=== PATIENT | female | born 1990 | race Caucasian/White ===

== ENCOUNTER 2022-07-28 13:32 | Outpatient (CLI) | payer OTHER, SELFPAY ==
[2022-07-28 13:52] LABS: Hematocrit 32.9 % (37.0-47.0); Hemoglobin 10.5 g/dL (12.0-15.0); Mean Corpuscular HGB Conc 31.9 g/dl (32-36); Mean Corpuscular Hemoglobin 27.3 pg (26-34); Mean Corpuscular Volume 85.5 fl (80-100); Mean Platelet Volume 10.6 fl (7.4-10.4); Platelet Count Result 284 k/mm3 (150-375); Red Blood Count 3.85 M/mm3 (4.2-5.4); Red Cell Distribution Width 14.6 % (11.5-14.5); White Blood Count 12.4 K/mm3 (4.5-10.0)
[2022-07-29 13:54] LABS: Rapid Plasma Reagin Non-Reactive (NonReactive)
== END 2022-07-28 13:33 | disposition home or self-care (01) ==
LOC: ANHLAB 13:34
PROVIDERS: Visit Provider Obstetrics & Gynecology
DX: Z01.812 Encounter for preprocedural laboratory examination (principal)
CPT/HCPCS: 36415; 85027; 86592; 86850; 86900; 86901

== ENCOUNTER 2022-07-29 09:00 | Inpatient (IN) | payer OTHER, SELFPAY ==
[2022-07-29] VITALS (83 sets, daily range): BP systolic 119–148; BP diastolic 66–122; PULSE 62–116; RESP 12–18; TEMP 36–37.1; O2SAT 95–100; BMI 38.7
--- NOTE | 2022-07-29 09:26 | P.HP_ITS ---
H&P: HPI History of Present Illness Date/Time: 07/29/22 09:26 Chief Complaint: R CS Narrative: Gretta is a 32yo at 39.0 who presents for repeat CS with bilateral salpingectomy. is complicated by 3 prior CS and late/insufficient care, only 3 visits. Her UDS at first visit was pos for MJ and amphetamines, she admitted to using meth until 32w GA. She also has a history of a previous child with a heart defect but was noncompliant in scheduling a echo this . Plan for repeat CS and sterilization with salpingectomy. Review of Systems Review of Systems: All systems reviewed & are unremarkable except as noted in HPI and below [facility] Family History Family History (Updated 07/25/22 @ 13:34 by Danuta Donaldson RN) Other Patient denies significant medical history Social History Social History Substance use: never Last use: unknown, pt denies Spiritual care concerns: No Meds Home Medications and Allergies Home Medications Medication Instructions Recorded Confirmed Type albuterol sulfate 90 mcg/actuation 2 puff inhalation QID PRN Wheezing 07/25/22 07/25/22 History aerosol inhaler prenat.vits,naila,[id number]-tdhvs 1 tablet PO DAILY 07/25/22 07/25/22 History Allergies Allergy/AdvReac Type Severity Reaction Status Date / Time No Known Allergies Verified 01/17/10 09:13 Exam Const: General: no acute distress Resp: Effort & Inspection: normal respiratory effort Auscultation: clear to auscultation bilaterally Cardio: Rate: regular rate Rhythm: regular rhythm GI: GI Palp: Yes Soft to palpation Extrem: General: normal to inspection Assessment and Plan Assessment and plan (1) History of delivery: Code(s): Z98.891 - History of uterine scar from previous surgery Status: Acute (2) Encounter for sterilization: Code(s): Z30.2 - Encounter for sterilization Status: Acute (3) Insufficient care: Code(s): O09.30 - Supervision of with insufficient care, unspecified trimester Status: Acute (4) Drug abuse during : Code(s): O99.320 - Drug use complicating , unspecified trimester; F19.10 - Other psychoactive substance abuse, uncomplicated Status: Acute Plan Consented for R CS and bilateral salpingectomy, discussed RBA, questions answered, will proceed SW consult drug screen on maternal urine and cord
[2022-07-29] MEDS: LACTATED RINGERS 1,000 ML 125 ML IV CONT ×2 (09:52→11:59)
--- NOTE | 2022-07-29 09:55 | LDADM ---
This patient, Gretta Norman, was admitted to Labor/Delivery/Recovery 120 on 07/29/22 at 09:00. Plans for labor, pain management and were discussed with patient. Patient/family oriented to hospital policies and general routines including ID bracelet, bed and alarms, visiting hours, pain management, procedures, bathroom and other care routines, personal items, smoking policy, room service/diet and guest tray routines, security routines, and visiting hours. Patient/Family are encouraged to report perceived risks to care and to ask questions if they do not understand what they are told or what they should do.
--- NOTE | 2022-07-29 11:57 | WPDANESEPPF ---
Anes - Initial Pre Proc Eval Procedure: Operation Date: 07/29/22 12:00 Proposed Procedures p Repeat Section with Bilateral Salpingectomy - Deanna Patten MD Date/Time: 07/29/22 11:57 Surgeon: Deanna Patten MD Pre Op Diagnosis: c/s Patient Data Age: 32 Gender: F Height: 1.63 m Weight: 102.2 kg Last Vital Signs Temp 36.7 C 07/29/22 09:30 Pulse 78 07/29/22 11:01 Resp 18 07/29/22 09:30 BP 147/82 H 07/29/22 11:01 Pulse Ox 96 07/29/22 10:19 O2 Del Method Room Air 07/29/22 09:55 Allergies Allergy/AdvReac Type Severity Reaction Status Date / Time No Known Allergies Verified 01/17/10 09:13 Home Medications Medication Instructions Recorded Confirmed Type albuterol sulfate 90 mcg/actuation 2 puff inhalation QID PRN Wheezing 07/25/22 07/29/22 History aerosol inhaler prenat.vits,naila,qnr-fpcu-ynymy 1 tablet PO DAILY 07/25/22 07/29/22 History Laboratory Tests 07/29/22 10:40 Urine Opiates Screen Pending Urine Methadone Screen Pending Ur Barbiturates Screen Pending Ur Phencyclidine Scrn Pending Ur Amphetamine Screen Pending U Benzodiazepines Scrn Pending Urine Cocaine Screen Pending U Cannabinoids Screen Pending Patient hx anesthesia problems: none Family hx anesthesia problems: none Results Review: All pre-operative results and documents have been reviewed as part of the pre-operative evaluation. [facility] Past Medical History Medical History (Updated 07/29/22 @ 11:57 by Esteban Gregorio DO) Asthma Family History Family History Other Patient denies significant medical history Social History Social History Smoking packs per day: 1 Smoking cigarettes per day: 20.0 Years smoked: 13 Smoking pack-years: 13.00 Smoking status: Current every day smoker Second hand tobacco smoke exposure: Yes Additional smoking assessment comments: Had totally stopped, but has had 2 cigs/day for the last 2 weeks Substance use: never Last use: unknown, pt denies Lack of Transportation: YES Lack of Food: Never True Current Housing: I Have Housing Concerned About Future Housing: No Difficulty Paying Gas/Electric Bills: No Difficulty Paying for Meds: No Currently Unemployed: No Education: Grade School Difficulty w/ Childcare or Family Care: No Spiritual care concerns: No Anes - Eval Final PreProcedure Day of Procedure 07/29/22 11:57 Patient weight: obese Heart: regular rate and rhythm Lungs: clear to auscultation and normal air movement Airway: Mallampati scale class II Neurological: alert and oriented Last oral intake: >/= 8 hours ASA classification: III Emergent: no Anesthetic plan: proceed Anesthesia type and monitoring: regional spinal and standard monitoring Results Review: All pre-operative results and documents have been reviewed as part of the pre-operative evaluation. Informed Consent: The patient's anesthetic plan and its attendant risks and benefits were discussed with the patient/family/POA. Questions were solicited and answers provided to the satisfaction of the patient/family/POA.
[2022-07-29 12:06] LABS: Amphetamine Screen Urine Negative (Negative); Barbiturate Screen Urine Negative (Negative); Benzodiazepines Screen Urine Negative (Negative); Cannabinoid Screen Urine Negative (Negative); Cocaine Screen Urine Negative (Negative); Methadone Screen Urine Negative (Negative); Opiate Screen Urine Negative (Negative); Phencyclidine Screen Urine Negative (Negative)
--- NOTE | 2022-07-29 12:08 | WPDHPUPDATE1 ---
History and Physical Update Update Date/Time: 07/29/22 12:08 History and Physical has been reviewed, including an updated exam of the patient. There are NO changes in the patient's condition. Risks, benefits, and alternatives have been discussed and questions answered. Patient agrees to proceed with procedure.
[2022-07-29] MEDS: ceFAZolin 2 GM/D5W 50 ML 2 GM/50 ML BAG IVPB (12:10)
[2022-07-29] MEDS: KETOROLAC 30 MG/ML VIAL (*BKC) IV PUSH (13:14)
--- NOTE | 2022-07-29 13:28 | PM.OBPRVD ---
OB - Delivery Note Procedure Delivery date: 07/29/22 Procedure: Procedures Operation Date: 07/29/22 12:00 Actual Procedure Side Surgeon p Repeat Section with Bilateral Salpingectomy Bilateral Deanna Patten MD Events: No Care (minimal) and Other Route of delivery: Specimen: Yes (placenta) Quantitative Blood Loss (ml): 400 Anesthesia type: Spinal Disposition: Floor Complications: none Narrative: The patient was taken to the OR and received spinal anesthesia. She was placed in dorsal supine position with left lateral tilt. SCDs and amaro were placed. She was prepped and draped in the normal sterile fashion. A Pfannensteil skin incision was made and carried through to the underlying layer of fascia. The fascia was incised in the midline and then extended laterally using Hickey scissors. The muscles were in the midline and the peritoneum was entered bluntly. There was a large amount of omentum adherent to the anterior abdominal wall which was taken down with sharp dissection and clamping and cutting thicker areas of it to expose the uterus. The bladder blade was then inserted, the vesicouterine peritoneum was grasped, incised with Metzenbaum scissors, and a bladder flap created. The bladder blade was reinserted. A low transverse uterine incision was made with a scalpel and extended bluntly. AROM was performed and fluid was noted to be clear. The baby was found to be breech and was delivered as such, in typical fashion, without any difficulty. The baby's oropharynx was suctioned. After 30 seconds, the cord was clamped and cut and the infant was handed off. Cord blood was obtained and the placenta was then removed manually. The uterus was exteriorized. A moist lap sponge was used to curette the endometrium. The uterine incision was then closed with one layer of 0-Vicryl in a running, locking fashion. Good hemostasis was noted. I then turned attention to the tubes. Using the Ligasure, the right tube was removed by sequentially clamping, cauterizing, and cutting the tube free from the cornua and the broad ligament. Similarly, the left tube was removed. The posterior cul de sac was irrigated with normal saline and cleared of all clot and debris. The uterus was returned to the abdomen. Both lateral gutters were then irrigated. The rectus muscles were inspected and found to be hemostatic. The fascia was reapproximated using 0-Vicryl in running fashion. The subcutaneous tissue was irrigated with normal saline and made hemostatic with Bovie electrocautery. The skin was then closed with reabsorbable keyshawn. Steri strips and a bandage were applied. The uterus was evacuated. The patient tolerated the procedure very well. All counts were correct. She was taken to the recovery room in good condition. [place] Baby Date of : 07/29/22 Time of : 12:45 Weeks of gestation at delivery: 39 gender: Female Weight (pounds): 7 Weight (ounces): 10 presentation: breech Placenta delivery description: Manual Removal and Abnormal Configuration (velamentous cord insertion) Cord Vessel Description: 3 Vessels and Clamped/Cut score one minute: 7 score five minutes: 9
--- NOTE | 2022-07-29 13:33 | SUR.PHASEI ---
300 ml remains in IV of 1000 LR with 40 units Pitocin.
[2022-07-29] MEDS: OXYTOCIN 30 UNITS/NS 500 ML 30 UNITS/500 ML BAG 125 UNITS IV CONT (14:52)
--- NOTE | 2022-07-29 16:10 | OBPPTRN ---
Patient transferred to post room # 286 via stretcher. and support person present. Pt introductions made and plan of care dsicussed per post op c section, pain management, bottle feeding, daily care activities. PT received such instructions per one to one discussion , mom baby care guide and demonstrations this shift. PT and fob both recipients of such care . Fob has a hearing loss and wears hearing aides. PT Oriented to unit, room, information board, rooming in, admission packet and security measures. Patient verbalizes understanding.
[2022-07-29] MEDS: POLYSACCHARIDE IRON COMPLEX 150 MG CAPSULE PO (16:56)
[2022-07-29] MEDS: SIMETHICONE 80 MG TAB.CHEW PO (16:56)
[2022-07-29] MEDS: DOCUSATE SODIUM 100 MG CAPSULE PO (16:56)
[2022-07-29] MEDS: diphenhydrAMINE HCl INJ 50 MG/ML VIAL 25 MG IV PUSH (16:57)
[2022-07-29] MEDS: DEXTROSE 5%/0.45% SOD CHL 1,000 ML 125 ML IV CONT (19:11)
[2022-07-30 03:30] VITALS: BP 126/85; PULSE 67; RESP 18; TEMP 36.9; O2SAT 98
[2022-07-30 03:55] LABS: Basophils Percent Auto 0.2 % (0.2-1.2); Eosinophils Percent Auto 0.2 % (0-4.4); Hematocrit 32.4 % (37.0-47.0); Hemoglobin 10.3 g/dL (12.0-15.0); Immature Granulocyte Absolute 0.08 K/mm3 (0.00-0.031); Immature Granulocyte Percent A 0.5 % (0-0.5); Lymphocytes Percent Auto 19.6 % (18.3-44.2); Mean Corpuscular HGB Conc 31.8 g/dl (32-36); Mean Corpuscular Hemoglobin 27.2 pg (26-34); Mean Corpuscular Volume 85.7 fl (80-100); Monocytes Absolute Auto 0.9 K/mm3 (0.1-0.6); Monocytes Percent Auto 5.9 % (2.6-8.5); Neutrophils Absolute Auto 11.6 K/mm3 (1.3-6.7); Neutrophils Percent Auto 73.6 % (45.5-73.1); Platelet Count Result 252 k/mm3 (150-375); Red Blood Count 3.78 M/mm3 (4.2-5.4); Red Cell Distribution Width 14.9 % (11.5-14.5); White Blood Count 15.8 K/mm3 (4.5-10.0)
--- NOTE | 2022-07-30 07:52 | WPDANLDPN2 ---
Anes-Prog Note L&D Date/Time: 07/30/22 07:52 Comfortable throughout: section Neuraxial method: spinal Epidural/Spinal procedure site: clean & non-tender Neuro status: Neuro function grossly intact. Cardiovascular status: normal Respiratory status: normal Airway patency: baseline Mental status: baseline Post-Op hydration status: normal Vital Signs: Last Vital Signs Temp 36.9 C 07/30/22 03:30 Pulse 67 07/30/22 03:30 Resp 18 07/30/22 03:30 BP 126/85 07/30/22 03:30 Pulse Ox 98 07/30/22 03:30 O2 Del Method Room Air 07/30/22 03:30 Pain score (VAS): 3/10 I/O: Intake & Output 07/29/22 07/29/22 07/30/22 15:59 23:59 07:59 Intake Total 1350 840 200 Output Total 384 594 7937 Balance 850 540 -1200 Post-procedural complaints: none Patient feedback: Patient satisfied with anesthetic care.
--- NOTE | 2022-07-30 07:53 | WPDANLDNPN2 ---
Anes-Prog Note L&D-Neuraxial Date/Time: 07/30/22 07:53 Neuraxial medications: intrathecal PF morphine Opiod-related complaints: pruritis moderate, treatment effective Patient feedback: Patient satisfied with post-operative pain management.
--- NOTE | 2022-07-30 07:58 | PM.OBPNVD ---
OB - PN: Subj Subjective Date/time seen: 07/30/22 07:58 Patient comments: no complaints, pain well controlled, tolerating diet and flatus present Kinzers baby status: doing well OB - PN: Obj Data Labs 07/30/22 03:26 Labs: Laboratory Results - last 24 hr 07/29/22 07/30/22 10:40 03:26 WBC 15.8 H RBC 3.78 L Hgb 10.3 L Hct 32.4 L MCV 85.7 MCH 27.2 MCHC 31.8 L RDW 14.9 H Plt Count 252 MPV 11.0 H Immature Gran % (Auto) 0.5 Neut % (Auto) 73.6 H Lymph % (Auto) 19.6 [place] % (Auto) 5.9 Eos % (Auto) 0.2 Baso % (Auto) 0.2 Lymph # (Auto) 3.10 [place] # (Auto) 0.9 H Eos # (Auto) 0.0 Baso # (Auto) 0.0 Abs Immat Gran (auto) 0.08 H Absolute Neuts (auto) 11.6 H Absolute Nucleated RBC 0.0 Nucleated RBC % 0.0 Urine Opiates Screen Negative Urine Methadone Screen Negative Ur Barbiturates Screen Negative Ur Phencyclidine Scrn Negative Ur Amphetamine Screen Negative U Benzodiazepines Scrn Negative Urine Cocaine Screen Negative U Cannabinoids Screen Negative OB - PN A/P Plan day: 1 Plan: routine care Time Spent With Patient Time: Total time spent is greater than 50% in coordination of care (as documented) at patient's floor/unit and/or counseling patient: Time with patient: less than 15 minutes Review of Systems Review of Systems: All systems reviewed & are unremarkable except as noted in HPI and below Exam Narrative: Fundus firm. Vaginal flow controlled. Incision dry and intact. Negative homans. No redness, warmth, or pain of lower ext. Const: General: comfortable Chest: Breast/axilla inspection: normal inspection of the breasts Resp: Effort & Inspection: normal respiratory effort Auscultation: clear to auscultation bilaterally Cardio: Rate: regular rate GI: GI Palp: Yes Soft to palpation Psych: Appearance: grossly normal Affect: normal affect Attitude: cooperative Thought content: Yes Normal thought content present Judgement: Good judgement present (Psych)
--- NOTE | 2022-07-30 08:30 | PC.NURSE ---
Pt introductions made and plan of care discussed per post , post op c section, pain management, bottle feeding, daily care activities. PT sole recipient of such instructions and no barriers to learning at this time. PT received such instructions this shift per one to one discussion, mom baby care guide and demonstrations. PT verbalized understanding of such care.
[2022-07-30] MEDS: HYDROcodone/acetaminophen (*CRX) 5-325 MG TABLET 1 TAB PO ×3 (08:42→17:52)
[2022-07-30] MEDS: IBUPROFEN 600 MG TABLET PO ×3 (08:44→20:00)
[2022-07-30 08:45] VITALS: BP 152/94; PULSE 79; RESP 20; TEMP 37.2; O2SAT 98
[2022-07-30] MEDS: SIMETHICONE 80 MG TAB.CHEW PO ×2 (08:45→15:03)
[2022-07-30] MEDS: DOCUSATE SODIUM 100 MG CAPSULE PO ×2 (08:45→17:49)
[2022-07-30 12:00] VITALS: BP 134/70; PULSE 68; RESP 16; TEMP 37.4; O2SAT 99
--- NOTE | 2022-07-30 14:54 | PCCCNOTE ---
Addendum entered by Kay Pacheco, CERTIFIED TEACHER ASSISTANT 07/30/22 16:38: Received call from [facility] tax investigator, Tika, . Who reports will be up to see pt. around 9-9:30am. Notified RN Nando. Original Note: Care Coordination. Patient referred to CC for history of marijuana and meth use during as well as only 3 visits. Pt. UDS was negative and cord drug screen is pending. Spoke with Belen Acosta at [facility] hotline and she took a report on situation (Intake ID#[id number]). Pt. denies any current [facility] involvement. She lives with FOB and 3 other children. She reports good support from her family, but that her sister and brother both abuse drugs. Pt. reports FOB of her older 2 children by overdose. She reports not using meth anymore, but does report last meth use was Jun 2021. Provided substance abuse resources and offered to arrange inpatient or outpatient services for her, but pt. declined. Pt. is working on getting setup with [facility]. She reports having all necessary baby care items. RN to notify CC what [facility] determines when they come to see pt. Will follow.
[2022-07-30] MEDS: TETANUS,DIPHTHERIA,AC PERTUSSIS ADULT (0.5 ML) BOOSTRIX IM (17:47)
[2022-07-30 19:50] VITALS: BP 130/87; PULSE 77; RESP 18; TEMP 36.6
[2022-07-31] MEDS: HYDROcodone/acetaminophen (*CRX) 5-325 MG TABLET 1 TAB PO ×2 (00:15→08:55)
--- NOTE | 2022-07-31 07:24 | PM.OBPNVD ---
OB - PN: Subj Subjective Date/time seen: 07/31/22 07:24 Patient comments: no complaints and pain well controlled baby status: doing well and bottle feeding well Narrative: WOuld like DC home today. DCFS coming this am. OB - PN: Obj Data Labs 07/30/22 03:26 OB - PN A/P Plan day: 2 Plan: routine care and discharge home Comments: DC instructions discussed HOme today if ok with peds and DCFS Time Spent With Patient Time: Total time spent is greater than 50% in coordination of care (as documented) at patient's floor/unit and/or counseling patient: Exam Narrative: NAD abdomen soft, appropriately tender, incision CDI Extremities nontender with 1+ edema
[2022-07-31 07:25] VITALS: BP 132/90; PULSE 77; RESP 16; TEMP 36.6; O2SAT 97
--- NOTE | 2022-07-31 07:29 | PM.OBDSVD ---
DS: Admitting Diagnosis Discharge Date 07/31/22 Admitting Diagnosis IUP 39w, prior CS x3 DS: Discharge Diagnosis Discharge Diagnosis (1) delivery delivered: Code(s): O82 - Encounter for delivery without indication Status: Acute OB - DS: Summary Hospital Course Hospital Course: Gretta was admitted for repeat CS with bilateral salpingectomy for sterilization. She had an uncomplicated delivery and course. DCFS was involved for methamphetamine use earlier in . She was discharged home in stable condition on POD 2. OB Procedures : Ultrasound OB Procedures Intrapartum: and Tubal ligation OB Procedures: : None Peripartum Data Delivery Method: Section Procedures: Procedures Operation Date: 07/29/22 12:00 Actual Procedure Side Surgeon p Repeat Section with Bilateral Salpingectomy Bilateral Deanna Patten MD complications: none Status at Discharge Functional status at discharge: independent ambulation Time Spent with Patient Time attestation: Total time spent providing and/or coordinating discharge services: Exam Narrative: NAD abdomen soft, appropriately tender, incision CDI DS: Data Data Completed and Pending Pending studies at discharge: Pending at discharge 07/29/22 14:20 Surgical [PTH] Routine Discharge Plan Discharge Attending physician on discharge: Deanna Patten Discharging Clinician: Deanna Patten Anticipated Discharge Date/Time: 07/31/22 12:00 Patient Disposition: Home, Self-Care Activity: may shower, may drive after 2 weeks and pelvic rest Diet: regular Patient Instructions: Antibiotic Form Stand Alone Forms: General Discharge Information Follow-up/Referrals: Deanna Patten MD [Physician] - 1 Week Discharge Medications: New hydrocodone-acetaminophen 5-325 mg Tablet 1 tablet PO Q4-5H PRN (Reason: Moderate Pain (4-6)) Qty: 30 0RF docusate sodium 100 mg Capsule 100 mg PO BID PRN (Reason: Constipation) Qty: 60 0RF ibuprofen 600 mg Tablet 600 mg PO Q6H PRN (Reason: Cramping) Qty: 60 0RF Continued #2 Tablet 1 tablet PO DAILY albuterol sulfate 90 mcg/actuation Hfa Aerosol Inhaler 2 puff INHALATION QID PRN (Reason: Wheezing) Date of admission: 07/29/22 09:00 Primary Care Provider: PHYSICIAN,MORTGAGE LOAN INTERVIEWER Admitting Provider: Patten,Deanna T. Attending physician on admission: Deanna Patten. Condition: Stable
[2022-07-31] MEDS: IBUPROFEN 600 MG TABLET PO (08:54)
[2022-07-31] MEDS: DOCUSATE SODIUM 100 MG CAPSULE PO (08:54)
--- NOTE | 2022-07-31 09:30 | PC.NURSE ---
DCFS here to see mom.
--- NOTE | 2022-07-31 13:30 | PCCCNOTE ---
Care Coordination Note. Pt. met with [facility] this a.m. Per RN, Juani, [facility] worker reports baby will be taken into care and be placed with pt.'s aunt. RN will get [facility] worker's badge for the chart. It should be [facility] breastfeeding peer counselor, Tika, .
[2022-08-01 07:57] VITALS: BP 140/82; PULSE 78; RESP 20; TEMP 37.1; O2SAT 100
== END 2022-07-31 13:43 | disposition home or self-care (01) | DRG 540 ==
LOC: ANHLDR 09:03 → ANHOB2 16:11
PROVIDERS: Admitting Provider Obstetrics & Gynecology; Visit Provider Obstetrics & Gynecology
PROC: 10D00Z1 Extraction of Products of Conception, Low, Open Approach (ICD-10-PCS; CPT 59514; principal; 2022-07-29 12:00)
DX: O34.211 Maternal care for low transverse scar from previous cesarean delivery (principal); J45.909 Unspecified asthma, uncomplicated; Z37.0 Single live birth; O32.1XX0 Maternal care for breech presentation, not applicable or unspecified; Z3A.39 39 weeks gestation of pregnancy; O43.123 Velamentous insertion of umbilical cord, third trimester; Z23 Encounter for immunization; O99.52 Diseases of the respiratory system complicating childbirth; Z30.2 Encounter for sterilization
CPT/HCPCS: 36415; 80307; 85025; 88302; 88307; 90471; 90686; 90715; A9270; G0008; J0131; J0690; J1200; J1885; J2274; J2590; J7120